=== PATIENT | female | born 1965 | race Caucasian/White ===

== ENCOUNTER 2024-01-03 22:18 | Observation (INO) | payer OTHER, SELFPAY ==
[2024-01-03 18:57] VITALS: BMI 29.4
[2024-01-03 18:58] VITALS: BP 159/85
[2024-01-03 20:29] LABS: % Eosinophils 1.4 % (0-6); % Immature Granulocytes 0.2 % (0-0.5); % Lymphocytes 32.4 % (20.5-51.1); % Monocytes 9.8 % (1.7-9.3); % Neutrophils 55.2 % (42.2-75.2); Absolute Basophils 0.1 10^3/uL (0-0.2); Absolute Eosinophils 0.1 10^3/uL (0-0.7); Absolute Lymphocytes 1.9 10^3/uL (1.2-3.4); Absolute Monocytes 0.6 10^3/uL (0.1-0.6); Absolute Neutrophils 3.3 10^3/uL (1.4-6.5); Hematocrit 36.1 % (37.0-47.0); Hemoglobin 12.8 g/dL (12.0-16.0); Mean Corp Hgb Conc. 35.5 g/dL (33.0-37.0); Mean Corpuscular Hgb 33.2 pg (27.0-31.0); Mean Corpuscular Volume 93.5 fL (81.0-99.0); Mean Platelet Volume 9.5 fL (7.4-10.4); Nucleated Red Blood Cells % 0 %; Platelet Count 321 10^3/uL (130-400); Red Blood Cell Count 3.86 10^6/uL (4.20-5.40); Red Cell Dist. Width 11.9 % (11.5-14.5); White Blood Cell Count 5.9 10^3/uL (4.8-10.8)
--- NOTE | 2024-01-03 20:29 | ED.GENMED ---
History of Present Illness
General
Chief Complaint: Skin Problem
Source: patient
Time Seen by Provider: 01/03/24 19:58
Travel History
Have you had any contact with someone who has COVID-19?: No
Do you have any symptoms of coronavirus? Fever > 100 degrees, chills, cough, shortness of breath, sore throat, loss of taste or smell, muscle aches, or headache?: No
History of Present Illness
History of Present Illness:
58-year-old female presenting the emergency department for evaluation of right second toe erythema, edema and tenderness that has been ongoing for the last 3 days, now with redness traveling up the anterior part of her leg prompting her to come to
the ER for further evaluation. She denies any fevers, chills, rigors or any other symptoms at this time. No history of diabetes. Patient states that the symptoms initially started as a blister which she attributes to a pair shoes that had rubbed
into the skin. Denies any history of similar.
Past History
Past History
ED Past Medical History: Asthma
ED Past Surgical History: Tonsilectomy
Social History
Tobacco: Non-smoker
Alcohol: None
Drug: None
Personal: Single
Living: with family
Review of Systems
Review of Systems
All Other Systems: ROS reviewed and negative except as documented in HPI and ROS
Phy Exam
Physical Exam
Physical Exam:
GENERAL: Alert , in no apparent distress
EYE: conjunctiva clear
Head: Normocephalic atraumatic
NECK: Supple,
ENT: mmm.
LUNGS: no acute respiratory distress
NEUROLOGICAL: Alert and oriented
SKIN: Warm and dry, opening of skin over the distal toe with surrounding erythema, edema and opening does appear wet. There is streaking along the dorsum of the foot extending into the distal third of the anterior tibia. It is hot to the touch,
tender. Easily palpable pedal and tibial pulse. Cap refills less than 2 seconds.
MUSCULOSKELETAL: well perfused.
PSYCH: Normal and appropriate interaction.
Scores
Heart Failure Risk
Heart Failure Risk Score: Not Applicable
Heart Score for Chest Pain Patients
STEMI patient?: Not applicable
Withdrawal Assessment of Alcohol
Withdrawal Assessment Completed?: Not applicable
Course
Orders/Labs/Results
Orders:
Orders
01/03/24 20:09
CR Foot - Right Min 3 Views Urgent
Comment:
Reason For Exam: 2nd digit infection/edema
01/03/24 20:22
Basic Metabolic Panel Urgent
CRP [C-Reactive Protein] Urgent
Complete Blood Count/With Diff Urgent
ESR [Erythrocyte Sed Rate] Urgent
Blood Culture Q30M
[facility] Source: Blood/Venous
Specimen Description:
Blood Culture Q30M
[facility] Source: Blood/Venous
Specimen Description:
01/03/24 20:50
Vancomycin [Vancocin] 2,000 mg 0.9% Sodium Chloride 500 ml [Nss] 500 ml IV NOW
01/03/24 21:27
Admit/Transfer Patient As Directed
Co-Sign Provider:
Level of Care: Observation services
Assign to:: Medical/Surgical
Physician / Group: Valerie
Diagnosis: Right 2nd Toe Cellulitis
01/03/24 21:28
Code Status As Directed
Resuscitation Status: Full Code
Abnormal Lab Results
01/03/24
20:22
RBC 3.86 L 10^6/uL
(4.20-5.40)
Hct 36.1 L %
(37.0-47.0)
MCH 33.2 H pg
(27.0-31.0)
Monocytes % 9.8 H %
(1.7-9.3)
Creatinine 0.5 L mg/dL
(0.6-1.0)
Glucose 108 H mg/dl
(70-99)
C-Reactive Protein 40.70 H mg/L
(0.0-10.00)
01/03/24 20:22
01/03/24 20:22
Vital Signs
Initial and Last Documented VS:
Initial Vital Signs
Temp Pulse Resp BP Pulse Ox
98.6 F 97 16 159/85 99
01/03/24 18:58 01/03/24 18:58 01/03/24 18:58 01/03/24 18:58 01/03/24 18:58
Last Documented Vital Signs
Temp Pulse Resp BP Pulse Ox
98.6 F 97 16 159/85 98
01/03/24 18:58 01/03/24 18:58 01/03/24 18:58 01/03/24 18:58 01/03/24 20:30
MDM/Problems Addressed
Differential Diagnosis Includes:
Cellulitis, abscess, osteomyelitis
MDM/Problems Addressed:
58-year-old female presenting emergency department for evaluation of right foot infection x 3 to 4 days. She is immunocompetent, afebrile and without leukocytosis however given the streaking up the right anterior leg we discussed risk versus
benefit of inpatient IV antibiotics versus trial of outpatient oral antibiotics and ultimately we decided IV antibiotics would likely provide more benefit. Will notify hospitalist team. IV vancomycin ordered. X-ray ordered as well.
*Radiology
Radiology exam reviewed: preliminary read by ED provider (STS, no fx)
*Pulse Oximetry
Patient hypoxic: no
*Critical Care Note
Total Time (30-74mins, 75-104mins- exclusive of procedures): Not Applicable
ED Attending Note
-
Portions of this chart may have been created with voice recognition software.� Occasional wrong word or��sound alike� substitutions may have occurred due to the inherent limitations of voice recognition software.
Discharge Plan
Departure
Patient Disposition: Admit
Date of Disposition: 01/03/24
Time of Disposition: 20:50
Presentation/result/management discussed w/ accepting MD/DO: Hospitalist
Discharge Problem:
Cellulitis of second toe of right foot
Prescriptions:
No Action
cetirizine [Zyrtec] 10 mg Tablet
10 mg PO DAILYPRN PRN (Reason: allergies)
Theragen Tablet
1 tab PO DAILY
zinc sulfate 50 mg zinc (220 mg) Tablet
50 mg PO DAILY
calcium carbonate [Calcium 500] 500 mg calcium (1,250 mg) Tablet
500 mg PO DAILY
rosuvastatin [Crestor] 5 mg Tablet
5 mg PO HS
omega 8-xqz-kjc-fish oil [Fish Oil] 1,000 mg (120 mg-180 mg) Capsule
1 cap PO DAILY
PreserVision AREDS 2,148 mcg-113 mg-45 mg-17.4mg Tablet
1 tab PO DAILY
butterbur root extract 75 mg Capsule
75 mg PO DAILY
magnesium oxide 400 mg magnesium Tablet
400 mg PO DAILY
Referrals:
Perry Christiansen DO [Family Provider] -
Interventions
Interventions:
*Risk Screen - Suicide Last Done: 01/03/24 19:38
*General Assessment Last Done: 01/03/24 18:58
*Neglect/Abuse Screening Last Done: 01/03/24 19:38
ED- Fall Risk Assessment Last Done: 01/03/24 19:38
*ED COVID-19 Vaccine History Last Done: 01/03/24 18:58
ED-Skin Assessment Last Done: 01/03/24 19:38
Discharge Date and Time
Print Language: GUATEMALAN
[2024-01-03 20:41] LABS: Erythrocyte Sed Rate 18 mm/hour (0-20)
[2024-01-03 20:48] LABS: Blood Urea Nitrogen 8 mg/dl (7-17); Carbon Dioxide 29 mmol/L (22-30); Chloride 102 mmol/L (98-107); Estimated Creatinine Clearance 112 ml/min; Glucose 108 mg/dl (70-99); Potassium 3.9 mmol/L (3.5-5.1); Sodium 138 mmol/L (135-145); eGFR > 60.00
[2024-01-03] MEDS: VANCOCIN 540 MG IV (20:56)
--- NOTE | 2024-01-03 21:17 | HPS.HSE ---
Addendum entered and electronically signed by Kalli Padilla DO 01/03/24 21:32:
HPI addendum: Should state RIGHT 2nd toe wound/redness and RIGHT 2nd toe blister.
Plan: Will additionally add topical mupirocin.
Original Note:
Family Physician
-
Family Physician: Perry Christiansen
Chief Complaint
-
Left 2nd Toe Wound/Redness
History of Present Illness
58yo F with PMH HLD, Asthma presents to ER with complaint of left 2nd toe wound/redness. Pt states 1 week ago 2/2 footwear she developped a left 2nd toe blister that popped on Monday. Endorses mild bloody drainage initially without purulence. Last
night she noticed mild increase in swelling/erythema with streaking up her forefoot today. Denies pain. Has only taken an occasional ibuprofen for relief and mother who is a nurse applied mupirocin today. Denies fever, chills, dizziness/LH, CP,
Palps, wheezing, cough, sob, abd pain, n/v/d/c, dysuria, calf or leg pain. No recurrence in past or Hx MRSA. No known DM history.
ER course: Presents T 98.6, BP 159/85 other V.S.S. WBC 5.9K, Hgb 12.8 g/dL. BUN/Cr 8/0.5, CRP 40.7, ESR 18. XR negative for acute fx/dislocation/gas. S/P vancomycin in ER.
Medical History
Past Medical History
Past Medical History: Reports Other (HLD, Asthma)
Past Surgical History: Reports Other (Tonsillectomy (2006))
Social History
Tobacco: Non-smoker
Alcohol: None
Drug: None
Family History
Family History: Other (Mother with CAD. Brother with valvular disease and blood clots. Maternal GF with PE/CABGx3. Maternal GM with Valvular heart disease. )
Allergies / Home Medications
Allergies reflects when Allergies were last updated in [facility].
Home Medications with original date entered in [facility]
Allergy/Medication List:
Allergies
Allergy/AdvReac Type Severity Reaction Status Date / Time
apple Allergy Unknown Unknown Verified 01/03/24 19:01
codeine Allergy Unknown Unknown Verified 01/03/24 19:01
egg Allergy Unknown Unknown Verified 01/03/24 19:01
strawberry Allergy Unknown Unknown Verified 01/03/24 19:01
Home Medications
butterbur root extract 75 mg capsule 75 mg PO DAILY 01/03/24
calcium carbonate 500 mg PO DAILY 01/03/24
cetirizine 10 mg tablet (Zyrtec) 10 mg PO DAILYPRN PRN allergies 01/03/24
magnesium oxide 400 mg PO DAILY 01/03/24
omega 2-pvr-jsz-fish oil 1,000 mg (120 mg-180 mg) capsule (Fish Oil) 1 cap PO DAILY 01/03/24
rosuvastatin 5 mg tablet 5 mg PO HS 01/03/24
therapeutic multivitamin 1 tab PO DAILY 01/03/24
vitamins A,C,V-crqv-pnrlyh 2,148 mcg-113 mg-45 mg-17.4 mg tablet (PreserVision AREDS) 1 tab PO DAILY 01/03/24
zinc sulfate 50 mg zinc (220 mg) tablet 50 mg PO DAILY 01/03/24
Review of Systems
-
A 12 point ROS was completed and negative except as noted: Yes
Physical Exam
Vital Signs
Vital Signs
Temp Pulse Resp BP Pulse Ox
98.6 F 97 16 159/85 98
01/03/24 18:58 01/03/24 18:58 01/03/24 18:58 01/03/24 18:58 01/03/24 20:30
Physical Exam
General: Well Developed, Well Nourished, No Apparent Distress, Comfortable and Conversant
HEENT: NormoCephalic, Moist mucous membranes and Atraumatic
Respiratory: Clear
Cardiac: S1/S2 and Regular Rhythm; No Murmur or Rub
GI: Soft, Non Tender, Non Distended and Normal Bowel Sounds; No Organomegaly
Rectal: Deferred by Provider
Genito-urinary: No costovertebral tender; No Swan
Musculoskeletal: No Clubbing, No Cyanosis and Edema, Left Lower Extremity
Skin: Warm, Dry, Rash and Lesions (right anterior 2nd toe small ulceration with erythema to mid forefoot. No TTP; Left 2nd toe with superficial ulceration without erythema. )
Neuro: Awake, Alert, Oriented, AO x 3, No Motor Deficits and Nonfocal/grossly intact
Hematologic/Lymphatic: No Lymphadenopathy
Psych: Calm
Laboratory Results
-
01/03/24 20:22
01/03/24 20:22
Data Reviewed
-
Diagnostic Radiology: Image Personally Visualized and interpreted
Lab Data: Labs Reviewed by me
Old Records: Reviewed
Impression/Plan
-
Right 2nd Toe Wound/Cellulitis
- 1 week complaint of left 2nd toe blister that popped with resultant streaking to mid forefoot since last night
- Afebrile. No leukocytosis. CRP 40.7. ESR 18
- XR Left Foot on personal review (-)Fx/Dislocation/Gas, follow official read
- S/P vancomycin in ER. Will continue. Suspect early transition to bactrim vs keflex on discharge
HLD - Chronic. Continue home statin and fishoil.
Asthma - Chronic/stable. Allergy induced. Continue home zyrtec
Diet: Regular
DVT Ppx: Lovenox
Code Status: Full
--- NOTE | 2024-01-03 22:39 | PTCARENOTE ---
Pt received from ED to rm [id number]. Pt oriented to room and call hernandez.
[2024-01-03 23:05] VITALS: BP 135/79
--- NOTE | 2024-01-03 23:05 | PHA.VAN.IN ---
Assessment
- Assessment
Renal Function: Appears similar to baseline
Concomitant Antimicrobials: NONE
- Previous Dosing Experience
Previous Regimen: NONE
AUC Dosing Plan
- Dosing Variables
Dosing Weight (kg): 85
Dosing CrCl (ml/min): 100
Vd coefficient (L/kg): 0.7
- Empiric Dosing
Initial / Loading Dose: 2GM
Maintenance Regimen: 1250MG IV Q12H
Estimated AUC (mcg*h/mL): 512
Estimated Peak (mcg*h/mL): 32.3
Estimated Trough (mcg/ml): 12.9
Estimated Half Life (H): 7.9
Pharmacokinetics Vancomycin I
- -
Patient Age: 58
Patient Sex: Female
Vancomycin Day #: 1
Indication: Skin And Soft Tissue ([R] 2ND TOE WOUND)
Requesting Provider: MITUL
Height / Weight:
Height 5 ft 7 in
Actual Weight 85 kg
- Vital Signs / Lab Results
Temp Pulse Resp BP Pulse Ox
98.6 F 97 16 159/85 97
01/03/24 18:58 01/03/24 18:58 01/03/24 18:58 01/03/24 18:58 01/03/24 22:00
Lab Results - Hematology
01/03/24
20:22
WBC 5.9
Lab Results - Chemistry
01/03/24
20:22
BUN 8
Creatinine 0.5 L
Estimated Creat Clear 112
[2024-01-03] MEDS: CRESTOR 5 MG PO (23:07)
[2024-01-03] MEDS: BACTROBAN 2% OINTMENT 1 APPLIC TOPICAL (23:13)
[2024-01-04 00:51] VITALS: BMI 28.7
[2024-01-04] MEDS: VANCOCIN 275 MG IV (06:04)
[2024-01-04 07:09] LABS: % Basophils 0.8 % (0-2); % Eosinophils 2.5 % (0-6); % Immature Granulocytes 0.2 % (0-0.5); % Lymphocytes 36.2 % (20.5-51.1); % Monocytes 10.2 % (1.7-9.3); % Neutrophils 50.1 % (42.2-75.2); Absolute Eosinophils 0.1 10^3/uL (0-0.7); Absolute Lymphocytes 1.7 10^3/uL (1.2-3.4); Absolute Monocytes 0.5 10^3/uL (0.1-0.6); Absolute Neutrophils 2.4 10^3/uL (1.4-6.5); Hematocrit 35.1 % (37.0-47.0); Hemoglobin 11.8 g/dL (12.0-16.0); Mean Corp Hgb Conc. 33.6 g/dL (33.0-37.0); Mean Corpuscular Hgb 33.1 pg (27.0-31.0); Mean Corpuscular Volume 98.3 fL (81.0-99.0); Nucleated Red Blood Cells % 0 %; Platelet Count 288 10^3/uL (130-400); Red Blood Cell Count 3.57 10^6/uL (4.20-5.40); White Blood Cell Count 4.8 10^3/uL (4.8-10.8)
[2024-01-04 07:29] LABS: Blood Urea Nitrogen 9 mg/dl (7-17); Calcium 9.2 mg/dl (8.4-10.2); Carbon Dioxide 30 mmol/L (22-30); Chloride 107 mmol/L (98-107); Estimated Creatinine Clearance 110 ml/min; Glucose 90 mg/dl (70-99); Potassium 4.8 mmol/L (3.5-5.1); Sodium 138 mmol/L (135-145); eGFR > 60.00
[2024-01-04 07:40] VITALS: BP 121/84
[2024-01-04] MEDS: BACTROBAN 2% OINTMENT 1 APPLIC TOPICAL (07:44)
[2024-01-04] MEDS: OCUVITE SOFTGEL 1 CAP PO (07:45)
[2024-01-04] MEDS: ZINC SULFATE 220 MG PO (07:45)
[2024-01-04] MEDS: OSCAL CAL 500 500 MG PO (07:46)
[2024-01-04] MEDS: MAG-TAB SR 84 MG PO (07:46)
[2024-01-04] MEDS: THERAGRAN 1 TABLET PO (07:46)
--- NOTE | 2024-01-04 08:22 | PHA.VAN.FU ---
Vancomycin Assessment / Plan
- Assessment
Renal Function: Stable
WBC's are: WNL
In the past 24 hrs, patient has been: Afebrile
- Dosing Plan
Continue: Vanc 1250mg Q12H
- Monitoring Plan
No level(s) ordered at this time: consider levels in next few days
- Follow Up
Pharmacy will continue to follow.
Vancomycin Follow UP
- -
Patient Age: 58
Patient Sex: Female
Vancomycin Day #: 2
Indication: Skin And Soft Tissue
Requesting Provider: Dr. Padilla
Pertinent Antimicrobial Allergies:
no pertinent antibiotic allergies
Height / Weight:
Height 5 ft 7 in
Actual Weight 82.917 kg
- Vital Signs / Lab Results
Temp Pulse Resp BP Pulse Ox
98.0 F 73 17 121/84 99
01/04/24 07:40 01/04/24 07:40 01/04/24 07:40 01/04/24 07:40 01/04/24 07:40
Lab Results - Hematology
01/03/24 01/04/24
20:22 05:56
WBC 5.9 4.8
Lab Results - Chemistry
01/03/24 01/04/24
20:22 05:56
BUN 8 9
Creatinine 0.5 L 0.5 L
Estimated Creat Clear 112 110
--- NOTE | 2024-01-04 10:16 | CM ---
Addendum entered by Annette Espinoza 01/04/24 14:34:
Plan: discharge to home today; no needs; has a ride home
Original Note:
Met with patient at bedside; initial assessment completed
Pharmacy verified: [facility]
Patient lives in a [place] w/basement; 84 yr old mother lives with her; no steps to enter; 12 steps down to basement; railing present; bath has tub w/shower
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
Transportation: Mother will provide ride home
SNF/Rehab/Home Care utilization history: none
Plan: discharge to home without needs when stable
[2024-01-04 14:26] VITALS: BP 108/77
--- NOTE | 2024-01-04 15:56 | W.DCSUMMARY ---
Discharge Summary
Discharge Data
Date of Admission: 01/03/24
Date of Discharge: 01/04/24
-
Pending Results: No
Hospital Course
Discharging Physician : Dr. Fidel Hein
Disposition :
Primary care physician :
Principal Discharge diagnosis :
1. Cellulitis of the second right toe triggered by irritation from the shoe and superadded bacterial infection
2. Dyslipidemia
3. Asthma stable
Chronic Discharge diagnosis :
History of present illness:
58yo F with PMH HLD, Asthma presents to ER with complaint of left 2nd toe wound/redness. Pt states 1 week ago 2/2 footwear she developped a left 2nd toe blister that popped on Monday. Endorses mild bloody drainage initially without purulence. Last
night she noticed mild increase in swelling/erythema with streaking up her forefoot today. Denies pain. Has only taken an occasional ibuprofen for relief and mother who is a nurse applied mupirocin today. Denies fever, chills, dizziness/LH, CP,
Palps, wheezing, cough, sob, abd pain, n/v/d/c, dysuria, calf or leg pain. No recurrence in past or Hx MRSA. No known DM history.
ER course: Presents T 98.6, BP 159/85 other V.S.S. WBC 5.9K, Hgb 12.8 g/dL. BUN/Cr 8/0.5, CRP 40.7, ESR 18. XR negative for acute fx/dislocation/gas. S/P vancomycin in ER.
Hospital Course :
So patient admitted for cellulitis of the second right toe triggered few days earlier by irritation of one of his shoe, on admission the second right toe have some superficial opening and x-ray done in the ER showed no evidence of osteomyelitis or
bony destruction, and redness was extending a cystic lying to his right foot.
Vancomycin started and overall she was doing much better the redness in the right foot and strick line disappear as well as swelling and redness of the right big toe is much better.
No any other symptom or complaint during hospitalization, no fever or chill or cough or congestion.
Her mom at the bedside is a retired nurse.
Therefore patient discharged on Keflex 800 mg 3 times daily as discussed with the patient if not improving then need to call her primary care physician at antibiotic to cover MRSA at MRSA infection be very unlikely and healthy young lady.
Side effect of the Keflex including diarrhea and bloating and even C. difficile explained to the patient and the daughter.
Encourage oral hydration and have a cup yogurt of the daily while on antibiotic
Important imaging findings :
None
Changes to Home Medications: No
Discharge Medications:
DC Medications w/original date entered in [facility]
butterbur root extract 75 mg capsule 75 mg PO DAILY Supplement 01/03/24
calcium carbonate 500 mg PO DAILY Supplement 01/03/24
cetirizine 10 mg tablet (Zyrtec) 10 mg PO DAILYPRN PRN allergies 01/03/24
magnesium oxide 400 mg PO DAILY Supplement 01/03/24
omega 6-hbw-nwc-fish oil 1,000 mg (120 mg-180 mg) capsule (Fish Oil) 1 cap PO DAILY Supplement 01/03/24
rosuvastatin 5 mg tablet 5 mg PO HS High Cholesterol 01/03/24
therapeutic multivitamin 1 tab PO DAILY Supplement 01/03/24
vitamins A,C,Q-nird-jkzwcp 2,148 mcg-113 mg-45 mg-17.4 mg tablet (PreserVision AREDS) 1 tab PO DAILY Supplement 01/03/24
zinc sulfate 50 mg zinc (220 mg) tablet 50 mg PO DAILY Supplement 01/03/24
cephalexin 500 mg capsule 500 mg PO Q8H 10 days #30 caps 01/04/24
Home Medication Changes
Pending Results: No
Additional Pending Results:
Physical exam:
General: Awake, alert and oriented x3, not in distress and holds appropriate conversation.
HEENT: No active discharge, ecchymosis or bruising, moist lips, tongue and mucous membrane.
Eyes: No discharge or red conjunctiva, no nystagmus, pupils are reactive and equal
Neck:Supple, no JVD no bruit no goiter.
Respiratory: Normal AP contour and diameter, normal chest wall movement, normal respiratory effort, no respiratory distress,
Lungs: Good air entry bilaterally, no wheezing or rhonchi, no rales or crackles
Heart: S1, S2 regular, normal rate, no added sound.
Gastrointestinal: Positive bowel sounds, soft, nontender, no guarding or rigidity or organomegaly
Musculoskeletal: Right second toe cellulitis and small wound with no active discharge, improving,, no chest wall abnormality or tenderness. All joints and extremities have good range of motion, no muscle tenderness or any joint swelling or
tenderness.
Extremities: No pitting edema, good peripheral pulses, good range of motion
Skin: Warm and dry, no ulceration, normal color.
Neurological: Awake, alert and oriented x3, speech clear and comprehensive, good muscle tone, normal sensory and motor function
Psychiatric: Normal mood, normal thought and judgment, normal affect,
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
goes home where lives with the family independently.
Discharge Plan
-
Patient Disposition: Home (Routine Discharge)
Discharge Diagnosis/Procedures: Cellulitis
Condition: Good
Diet: Low Fat and Low Cholesterol
Activity Restrictions/Additional Instructions:
-Cellulitis of the right second toe, was triggered by some irritation earlier.
-Keep the area dry and avoid getting it wet for the next few days
-Continue oral antibiotic with Keflex 500 mg every 8 hours for the next 9 days.
-If the area getting red or worse and the redness comes back or increase the area need to come back to the hospital.
-Try to not apply local antibiotic some of those may cause allergy and redness,
-Antibiotic may cause diarrhea and to weigh 1 as a side effect, usually go away eventually while diarrhea or abdominal pain or fever, and does not go away need to come back to the hospital this could be a sign of the superadded infection called
several different
-Recommend to have a cup yogurt daily or probiotic while taking antibiotic
Stand Alone Forms: Return to Work
Referrals:
Perry Christiansen I., DO [Family Provider] -
Prescriptions:
New
cephalexin 500 mg capsule
500 mg PO Q8H 10 Days Qty: 30 0RF
Continued
cetirizine [Zyrtec] 10 mg Tablet
10 mg PO DAILYPRN PRN (Reason: allergies)
therapeutic multivitamin Tablet
1 tab PO DAILY
zinc sulfate 50 mg zinc (220 mg) Tablet
50 mg PO DAILY
calcium carbonate 500 mg calcium (1,250 mg) Tablet
500 mg PO DAILY
rosuvastatin 5 mg Tablet
5 mg PO HS
omega 0-fus-qkz-fish oil [Fish Oil] 1,000 mg (120 mg-180 mg) Capsule
1 cap PO DAILY
PreserVision AREDS 2,148 mcg-113 mg-45 mg-17.4mg Tablet
1 tab PO DAILY
butterbur root extract 75 mg Capsule
75 mg PO DAILY
magnesium oxide 400 mg magnesium Tablet
400 mg PO DAILY
Discharge Orders:
Discharge Patient (As Directed); Ordered 01/04/24
Ordered By: Fidel Hein
Discharge Date and Time
Discharge Date/Time: 01/04/24 16:51
Print Language: JAPANESE
[2024-01-04 19:13] LABS: Hepatitis C Antibody Negative (Negative)
== END 2024-01-04 16:51 | disposition home or self-care (01) ==
LOC: 4 WEST ACU 22:18
PROVIDERS: Physician Assistant Medical; ADMITTING PHYSICIAN Internal Medicine; ATTENDING PHYSICIAN Internal Medicine; EMERGENCY PHYSICIAN Emergency Medicine; FAMILY PHYSICIAN Internal Medicine
DX: L03.031 Cellulitis of right toe (principal); R60.9 Edema, unspecified; M77.31 Calcaneal spur, right foot; M79.89 Other specified soft tissue disorders; S90.425A Blister (nonthermal), left lesser toe(s), initial encounter; X58.XXXA Exposure to other specified factors, initial encounter; E78.5 Hyperlipidemia, unspecified; J45.909 Unspecified asthma, uncomplicated; Z91.012 Allergy to eggs; Z88.5 Allergy status to narcotic agent; Z91.018 Allergy to other foods
CPT/HCPCS: 73630; 80048; 85025; 85652; 86140; 86803; 87040; 87070; 96365; 96366; 99284; G0378

== ENCOUNTER → 2024-11-15 12:20 | Outpatient (REF) | payer BC, SELFPAY | LOC: HWWDC 12:20 | PROVIDERS: ATTENDING PHYSICIAN Family Medicine | DX: Z12.31 Encounter for screening mammogram for malignant neoplasm of breast (principal); Z78.0 Asymptomatic menopausal state | CPT/HCPCS: 77063; 77067; 77080 ==